=== PATIENT | female | born 1995 | race Two or more races ===

== ENCOUNTER 2025-03-30 22:54 | Emergency (ER) | payer OTHER ==
[~2025-03-30] VITALS: Ht 165.1 cm; Wt 74.8 kg
[2025-03-31] MEDS ORDERED: FAMOtidine 10 MG/ML (4ML VIAL) IV ONE (00:15)
[2025-03-31] MEDS ORDERED: 0.9 % SODIUM CHLORIDE 1,000 ML IV ONE (00:15)
[2025-03-31] MEDS ORDERED: ONDANSETRON HCL 2 MG/ML VIAL IV ONE (00:15)
[2025-03-31] MEDS ORDERED: ONDANSETRON HCL 2 MG/ML VIAL ONE (00:20)
[2025-03-31] MEDS ORDERED: FAMOTIDINE/PF 20 MG/2 ML VIAL ONE (00:21)
[2025-03-31 00:50] LABS: BASO % 0.4 % (0.1-1.2); EOS # 0.10 (0.04-0.54); EOS % 1.0 % (0.7-7.0); LYMPH # 2.19 (1.18-3.74); LYMPH % 21.9 % (19.3-53.1); MEAN PLATELET VOLUME 9.30 fl (9.4-12.4); MONO # 0.69 (0.24-0.82); MONO % 6.9 % (4.7-12.5); NEUT # 6.93 (1.56-6.13); NEUT % 69.2 % (34.0-71.1); RED CELL DISTRIBUTION WIDTH 14.3 % (11.6-14.4)
[2025-03-31 01:20] LABS: URINE APPEARANCE Clear; URINE BILIRRUBIN Negative (NEGATIVE); URINE BLOOD Negative; URINE COLOR Yellow; URINE GLUCOSE Negative (NEGATIVE); URINE KETONE Trace (NEGATIVE); URINE LEUKOCYTE Negative; URINE NITRATE Negative; URINE PROTEIN Negative (NEGATIVE); URINE UROBILINOGEN 1.0 E.U./dl
[2025-03-31 01:23] LABS: URINE BACTERIA 386.3 uL (0.0-1933); URINE EPITHELIAL CELLS 12.1 uL (0.0-38.8); URINE RBC 3.8 uL (0.0-20.8); URINE WBC 19.8 uL (0.0-23.2)
[2025-03-31 01:29] LABS: URINE CAST 0.14 uL (0.0-1.40)
[2025-03-31 01:59] LABS: ALT/SGPT 26.0 U/L (12-78); AST/SGOT 17.0 U/L (15-37); BILIRUBIN TOTAL 0.64 mg/dL (0.3-1.2); BUN CREA RATIO 11.0 (7.0-25.0); CREATININE SERUM 0.73 mg/dL (0.55-1.02); GFR 94.93; GLOBULINA 3.3 G/DL (2.4-3.5); GLUCOSE FASTING 97.0 mg/dL (65-100); OSMOLALITY SERUM 279.0 MOSM/KG (275-295)
[2025-03-31 02:01] LABS: HCG QUANTITATIVE 32735.0 mUI/mL (1-3)
[2025-03-31] MEDS ORDERED: ONDANSETRON ODT4 MG PO (05:38)
[2025-03-31] MEDS ORDERED: INTESTINEX680 M1 PO (05:38)
[2025-03-31] MEDS ORDERED: PEPCID AC20 MG PO (05:38)
== END 2025-03-31 05:43 | disposition home or self-care (01) ==
LOC: ER 22:54
PROVIDERS: Preventive Medicine Public Health & General Preventive Medicine
DX: Z34.90 Encounter for supervision of normal pregnancy, unspecified, unspecified trimester (principal); Z3A.01 Less than 8 weeks gestation of pregnancy; K52.9 Noninfective gastroenteritis and colitis, unspecified; R11.10 Vomiting, unspecified
CPT/HCPCS: 36415; 96365; 96366; 99282; J2405; J3490; J7030

== ENCOUNTER 2025-05-15 11:45 | Outpatient (CLI) | payer OTHER ==
[~2025-05-15 11:45] MED LIST: INTESTINEX680 M1 PO; ONDANSETRON ODT4 MG PO; PEPCID AC20 MG PO
== END 2025-05-15 11:49 | disposition home or self-care (01) ==
LOC: PRENATAL 11:45
PROVIDERS: ATTEND Obstetrics & Gynecology Maternal & Fetal Medicine
DX: O36.80X0 Pregnancy with inconclusive fetal viability, not applicable or unspecified (principal); Z36.82 Encounter for antenatal screening for nuchal translucency; Z3A.12 12 weeks gestation of pregnancy